=== PATIENT | male | born 1940 | race Caucasian/White ===

== ENCOUNTER 2017-09-24 08:40 | Inpatient (IN) | payer MEDICARE, BC ==
--- NOTE | 2017-09-23 15:00 | Pre-op HX & Phy Repo 2 SIG ---
DATE OF ADMISSION: 09/24/2017 Scheduled to be admitted on 09/24/2017. 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 The patient has a past history of ulcerative colitis and in 1973 underwent proctocolectomy with Farrah ileostomy. He underwent creation of a Kock pouch continent ileostomy in 1975 followed by revisions that year and in 1977. In 1977, he underwent resection of his Kock pouch with creation of another Kock pouch with a mesh collar. In 2012, he underwent laparotomy with revision of a Kock pouch valve stenosis as well as revision of the stoma. In April 2016 he underwent laparotomy with creation of a new valve and stoma with preservation of the Kock pouch and relocation of the stoma to the left lower quadrant. Following that surgery the patient did very well with occasional episodes of pouchitis treated with Cipro and Flagyl. In April 2017, one year postoperative, he developed an abscess in the midline incision near the umbilicus, which subsequently drained stool representing an enterocutaneous fistula. He has been wearing an ostomy appliance over this opening ever since then with minimal output, sometimes as little as 10 mL in 24 hours. He has tried an indwelling catheter in his pouch to drainage as well as intubating frequently to try and decrease the fistula drainage, but it has persisted and he had recurrent abdominal wall infection at the fistula site. He is scheduled to undergo laparotomy with either repair of the fistula with preservation of the Kock pouch or resection of his pouch with creation of a conventional Farrah ileostomy. PAST MEDICAL HISTORY: MEDICATIONS: Coumadin discontinued, recently changed to Lovenox, which he has been self-injecting 70 mg every 12 hours. Last injection to be 09/24/2017 in the morning. He also takes Proscar and Hytrin. ALLERGIES: Penicillin. OPERATIONS: In addition to the ulcerative colitis and pouch surgery, he underwent repair of three abdominal wall hernias as an infant. REVIEW OF SYSTEMS: In April 2012, he developed acute shortness of breath and was found to have pulmonary emboli of unknown source and has been anticoagulated with warfarin ever since. PHYSICAL EXAMINATION: GENERAL: The patient is 5 foot 8 inches, approximately 185 pounds. He is arriving [id number] and will be examined upon arrival and dictated separately. When examined in May 2017, the abdomen was soft and flat with the Kock pouch stoma low in the left lower quadrant with a mid-incision fistula with some hypertrophic granulations. IMPRESSION: 1. 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 2. History of ulcerative colitis. 3. History of pulmonary emboli in 2011 of unknown source, on warfarin. 4. Benign prostatic hypertrophy. 5. Status post multiple abdominal operations. 5.1. Proctocolectomy and Farrah ileostomy in 1973. 5.2. Kock pouch in 1975. 5.3. Revisions of Kock pouch in 1975 and 1977. 5.4. Resection of Kock pouch with creation of another Kock pouch with a mesh collar in 1977. 5.5. Laparotomy with revision of Kock pouch valve stenosis and revision of stoma 2012. 5.6. Laparotomy with creation of a new valve and stoma with preservation of the Kock pouch and relocation of the stoma to the left lower quadrant April 2016 DISCUSSION AND PLAN: The patient will be admitted and undergo a bowel prep with concomitant IV hydration with insertion of a dual lumen PICC line. He will undergo endoscopy of his Kock pouch on the day of admission and be prepared for surgery the following day. I have had a full discussion with the patient regarding the nature of the surgery, indications, alternatives, options, and risks. He understands the options include repair of the fistula with preservation of the pouch or resection of the pouch, which is his second Kock pouch, and creation of a permanent conventional Farrah ileostomy. I will have another complete discussion in person with the patient when he arrives [id number] Neil Reddy M.D. DR: JORDAN JOB#: [id number] CC: BO
[~2017-09-24] VITALS: Ht 165.1 cm; Wt 71.2 kg
[2017-09-24 08:00] VITALS: BP 127/74
[~2017-09-24 08:40] MED LIST: ASCORBIC ACID500 MG PO; COUMADIN6 MG PO; FISH OIL CAP1000 MG PO; FRAGMIN SUBQ; PROSCAR5 MG ORAL; TERAZOSIN HCL2 MG PO; TERAZOSIN HCL5 MG PO; UBIQUINOL100 MG PO; [UNRECOGNIZED DRUG - OTHER] SUBQ
[2017-09-24] MEDS ORDERED: TERAZOSIN HCL2 MG PO (09:19)
[2017-09-24] MEDS ORDERED: HEPARIN SO5000 UNIT2 SUBQ (09:19)
[2017-09-24] MEDS ORDERED: LEVOFLOXACIN500 MG ORAL (09:19)
[2017-09-24] MEDS ORDERED: TERAZOSIN HCL1 MG ORAL (09:19)
[2017-09-24] MEDS ORDERED: LOVENOX10 M2 SUBQ (09:19)
[2017-09-24] MEDS ORDERED: Heparin 5000 units/ml inj SUBQ ONE (09:30)
[2017-09-24] MEDS ORDERED: Heparin 2000 units/Ns 1000ml INJ ONE (09:45)
[2017-09-24] MEDS ORDERED: Lidocaine 1% Plain 30 ml INJ ONE (09:45)
[2017-09-24 10:08] LABS: BASOPHILS % (AUTO) 1.8 % (0.0-2.0); EOSINOPHILS % (AUTO) 1.8 % (0.0-3.0); HEMATOCRIT 46.2 % (42.0-52.0); HEMOGLOBIN 15.1 G/DL (14.2-18.0); MEAN CORPUSCULAR VOLUME 94 FL (80-99); MONOCYTES % (AUTO) 7.4 % (1.0-10.0); PLATELET COUNT 414 K/UL (150-450); RED BLOOD COUNT 4.92 M/UL (4.70-6.10); RED CELL DISTRIBUTION WIDTH 11.7 % (11.6-14.8); WHITE BLOOD COUNT 8.3 K/UL (4.8-10.8)
[2017-09-24 10:09] LABS: ANION GAP 12 mmol/L (5-15); BLOOD UREA NITROGEN 27 mg/dL (7-18); CALCIUM 9.5 MG/DL (8.5-10.1); CARBON DIOXIDE 23 MMOL/L (21-32); CHLORIDE 103 MMOL/L (98-107); CREATININE 1.3 MG/DL (0.55-1.30); POTASSIUM 4.3 MMOL/L (3.5-5.1); SODIUM 138 MMOL/L (136-145)
[2017-09-24 10:14] LABS: ALANINE AMINOTRANSFERASE 27 U/L (12-78); ALBUMIN 3.9 G/DL (3.4-5.0); ALKALINE PHOSPHATASE 96 U/L (46-116); ASPARTATE AMINO TRANSFERASE 29 U/L (15-37); BILIRUBIN,TOTAL 0.5 MG/DL (0.2-1.0)
--- NOTE | 2017-09-24 10:53 | Diagnostic Imaging Report ---
Indication: Cough Technique: One view of the chest Comparison: 05/02/2016 Findings: Previously demonstrated left arm PICC is no longer evident. Lungs and pleural spaces are clear. Old healed fracture deformity of the midshaft right clavicle again demonstrated Impression: No acute process
--- NOTE | 2017-09-24 11:05 | Diagnostic Imaging Report ---
Indications: Needs long-term IV access Technique: Ultrasound confirms patent compressible left brachial vein. Total sterile technique, including sterile probe cover and sterile gel, hat, mask,, sterile gown, large sterile drape, and preparation with 2% chlorhexidine utilized. Local anesthesia with 1% lidocaine. Under real-time ultrasound guidance, puncture brachial vein using 21-gauge needle, documented and archived, passage 0.018 guidewire under direct fluoroscopy, which was used to determine appropriate catheter length, exchange for 5 Irish peel-away sheath. 5 Irish Bard dual-lumen power PICC cut to 46 cm. It was inserted through the peel-away sheath. Peel-away sheath and guidewire removed. Catheter fixed to the skin. Both catheter ports aspirated and flushed. Patient tolerated procedure well, without immediate complication. Digital radiograph documents satisfactory catheter tip position, at the cavoatrial junction. Total fluoroscopy time 0.3 minutes. Total dose area product 6 dGycm2 Impression: Successful placement of left arm PICC under sonographic and fluoroscopic guidance, as described above.
--- NOTE | 2017-09-24 11:21 | Pre-Procedure Note/Attestation ---
Pre-Procedure Note/Attestation Complete Prior to Procedure Planned Procedure: not applicable Procedure Narrative: Kock Pouch endoscopy Indications for Procedure Pre-Operative Diagnosis: Kock Pouch enterocutaneous fistula Attestation I attest that I discussed the nature of the procedure; its benefits; risks and complications; and alternatives (and the risks and benefits of such alternatives ), prior to the procedure, with the patient (or the patient's legal assisted sales representative). I attest that, if there was a reasonable possibility of needing a blood transfusion, the patient (or the patient's legal assisted sales representative) was given the [facility] standardized written summary, pursuant to the Adrián Ramila Blood Safety Act ([place] Health and Safety Code # 1645, as amended). I attest that I re-evaluated the patient just prior to the surgery and that there has been no change in the patient's H&P, except as documented below:none BOOGIE ZHONG Sep 24, 2017 11:21
[2017-09-24 12:00] VITALS: BP 105/73
--- NOTE | 2017-09-24 12:15 | Brief Operative Note ---
Immediate Post Operative Note Operative Note Pre-op Diagnosis: Kock Pouch enterocutaneous fistula Procedure: Kock Pouch endoscopy Post-op Diagnosis: angulation of access segment, normal pouch and valve Post-op Diagnosis: same as pre-op Findings: consistent w/pre-op dx studies Surgeon: pushpa Anesthesia: other - none Specimen: none Complications: none Condition: stable Fluids: none Drains: other - 28 Thompson to Kock Pouch Implant(s) used?: BOOGIE Mccullough Sep 24, 2017 12:15
--- NOTE | 2017-09-24 12:16 | General Progress Note ---
Progress Note Progress Note H&P dictated. Kock pouch endoscopy reveals angulation of access segment, normal pouch and valve. Fistula in mid-portion of midline incision with scant drainage during endoscopy - hypertrophic granulations at site Plan: Repair of Kock pouch enterocutaneous fistula in AM, or resection of pouch with Farrah ileostomy BOOGIE ZHONG Sep 24, 2017 12:16
[2017-09-24 12:21] LABS: APPEARANCE,URINE SLIGHTLY CLOUDY; BILIRUBIN, URINE NEGATIVE (NEGATIVE); GLUCOSE, URINE (UA) NEGATIVE (NEGATIVE); KETONES,URINE 1+ (NEGATIVE); LEUKOCYTE ESTERASE ,URINE 1+ (NEGATIVE); NITRITE,URINE NEGATIVE (NEGATIVE); PH,URINE 5 (4.5-8.0); PROTEIN,URINE 1+ (NEGATIVE); UROBILINOGEN,URINE NORMAL MG/DL (0.0-1.0)
[2017-09-24] MEDS: Neomycin Sulfate 500mg Tab ORAL SCH ×3 (12:25→20:35)
[2017-09-24] MEDS: Terazosin 1mg cap ORAL SCH ×2 (12:25→17:33)
[2017-09-24 12:26] LABS: COLOR,URINE YELLOW
--- NOTE | 2017-09-24 15:58 | Anethesia Preoperative Eval ---
Anesthesia Pre-op PMH/ROS General Date of Evaluation: Sep 24, 2017 Time of Evaluation: 15:41 Anesthesiologist: Donny ASA Score: ASA 3 Mallampati Score Class I : Soft palate, uvula, fauces, pillars visible Class II: Soft palate, uvula, fauces visible Class III: Soft palate, base of uvula visible Class IV: Only hard plate visible Mallampati Classification: Class II Surgeon: Barry Diagnosis: Enterocutaneous fistula involving Kock pouch continent ileostomy Surgical Procedure: Repair of Kock pouch vs Permanent Farrah Ileostomy Family History: no anesthesia problems Allergies: Coded Allergies: PENICILLIN G (Verified Allergy, Mild, hives, 10/16/12) Medications: see eMAR Past Medical History Pulmonary: Reports: other - PE, On Coumadin Gastrointestinal/Genitourinary: Reports: other - Colitis, Diverticulitis,BPH HEENT: Reports: cataract (L), cataract (R) PSxH Narrative: 1. 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 2. History of ulcerative colitis. 3. History of pulmonary emboli in 2011 of unknown source, on warfarin. 4. Benign prostatic hypertrophy. 5. Status post multiple abdominal operations. 5.1. Proctocolectomy and Farrah ileostomy in 1973. 5.2. Kock pouch in 1975. 5.3. Revisions of Kock pouch in 1975 and 1977. 5.4. Resection of Kock pouch with creation of another Kock pouch with a mesh collar in 1977. 5.5. Laparotomy with revision of Kock pouch valve stenosis and revision of stoma 2012. 5.6. Laparotomy with creation of a new valve and stoma with preservation of the Kock pouch and relocation of the stoma to the left lower quadrant. Anesthesia Pre-op Phys. Exam Physician Exam Last Vital Signs Date Time Temp Pulse Resp B/P (MAP) Pulse Ox O2 Delivery O2 Flow Rate FiO2 09/24/17 12:00 97.4 79 18 105/73 99 Room Air Constitutional: NAD Neurologic: CN 2-12 intact Cardiovascular: RRR Respiratory: CTA Gastrointestinal: S/NT/ND Airway Exam Mallampati Score: Class II MO: full ROM: limited Teeth: missing, intact Anesthesia Pre-op A/P Labs Hematology Test 09/24/17 09:40 White Blood Count 8.3 K/UL (4.8-10.8) Red Blood Count 4.92 M/UL (4.70-6.10) Hemoglobin 15.1 G/DL (14.2-18.0) Hematocrit 46.2 % (42.0-52.0) Mean Corpuscular Volume 94 FL (80-99) Mean Corpuscular Hemoglobin 30.7 PG (27.0-31.0) Mean Corpuscular Hemoglobin Concent 32.7 G/DL (32.0-36.0) Red Cell Distribution Width 11.7 % (11.6-14.8) Platelet Count 414 K/UL (150-450) Mean Platelet Volume 6.0 FL (6.5-10.1) L Neutrophils (%) (Auto) 69.0 % (45.0-75.0) Lymphocytes (%) (Auto) 20.0 % (20.0-45.0) Monocytes (%) (Auto) 7.4 % (1.0-10.0) Eosinophils (%) (Auto) 1.8 % (0.0-3.0) Basophils (%) (Auto) 1.8 % (0.0-2.0) Coagulation Test 09/24/17 09:40 Prothrombin Time 10.3 SEC (9.30-11.50) Prothromb Time International Ratio 1.0 (0.9-1.1) Activated Partial Thromboplast Time 28 SEC (23-33) Chemistry Test 09/24/17 09:40 Sodium Level 138 MMOL/L (136-145) Potassium Level 4.3 MMOL/L (3.5-5.1) Chloride Level 103 MMOL/L (98-107) Carbon Dioxide Level 23 MMOL/L (21-32) Anion Gap 12 mmol/L (5-15) Blood Urea Nitrogen 27 mg/dL (7-18) H Creatinine 1.3 MG/DL (0.55-1.30) Estimat Glomerular Filtration Rate mL/min (>60) Glucose Level 93 MG/DL (74-106) Calcium Level 9.5 MG/DL (8.5-10.1) Total Bilirubin 0.5 MG/DL (0.2-1.0) Aspartate Amino Transf (AST/SGOT) 29 U/L (15-37) Alanine Aminotransferase (ALT/SGPT) 27 U/L (12-78) Alkaline Phosphatase 96 U/L (46-116) Total Protein 8.0 G/DL (6.4-8.2) Albumin 3.9 G/DL (3.4-5.0) Globulin 4.1 g/dL Albumin/Globulin Ratio 1.0 (1.0-2.7) Risk Assessment & Plan Assessment: ASA 3 Plan: GA Status Change Before Surgery: No Pre-Antibiotics Drug: Isaias Martin MD Sep 24, 2017 15:58
[2017-09-24 16:00] VITALS: BP 118/69
[2017-09-24] MEDS: D5 1/2NS w/KCl 20mEq 1,000 ML IV SCH (17:33)
[2017-09-24] MEDS: Heparin 5000 units/ml inj SUBQ SCH (18:50)
[2017-09-24 20:00] VITALS: BP 96/55
[2017-09-25] VITALS (14 sets, daily range): BP systolic 87–120; BP diastolic 54–69
[2017-09-25] MEDS: D5 1/2NS w/KCl 20mEq 1,000 ML IV SCH (06:00)
[2017-09-25] MEDS: Heparin 5000 units/ml inj SUBQ SCH (07:55)
[2017-09-25] MEDS: Terazosin 1mg cap ORAL SCH ×2 (08:31→18:10)
[2017-09-25] MEDS ORDERED: NeoSporin Gu Irrig 1ml Amp IRRIG ONE (09:39)
[2017-09-25] MEDS ORDERED: Bacitracin 50000 Units Vial ONE (09:39)
[2017-09-25] MEDS ORDERED: NS Irrig 1000ml ONE (10:00)
[2017-09-25] MEDS ORDERED: Zemuron 50mg/5ml Inj IV ONE (10:00)
[2017-09-25] MEDS ORDERED: Lidocaine 1% MPF 10mg/ml 5ml ONE (10:00)
[2017-09-25] MEDS ORDERED: Propofol 200mg/20ml IV ONE (10:00)
[2017-09-25] MEDS ORDERED: Midazolam 2mg/2ml Inj ONE ×2 (10:00)
[2017-09-25] MEDS ORDERED: fentaNYL 100 mcg/2 mL IV ONE (10:00)
[2017-09-25] MEDS ORDERED: LR 1000ml ONE (10:00)
[2017-09-25] MEDS ORDERED: Sterile Water Irrig 1000ml IRRIG ONE (10:00)
--- NOTE | 2017-09-25 10:01 | Pre-Procedure Note/Attestation ---
Pre-Procedure Note/Attestation Complete Prior to Procedure Procedure Narrative: laparotomy with repair Kock Pouch enterocutaneous fistula, possible Farrah ileostomy Indications for Procedure Pre-Operative Diagnosis: Kock Pouch enterocutaneous fistula Attestation I attest that I discussed the nature of the procedure; its benefits; risks and complications; and alternatives (and the risks and benefits of such alternatives ), prior to the procedure, with the patient (or the patient's legal claims representative). I attest that, if there was a reasonable possibility of needing a blood transfusion, the patient (or the patient's legal claims representative) was given the [facility] standardized written summary, pursuant to the Adrián Ramila Blood Safety Act ([place] Health and Safety Code # 1645, as amended). I attest that I re-evaluated the patient just prior to the surgery and that there has been no change in the patient's H&P, except as documented below: none BOOGIE ZHONG Sep 25, 2017 10:01
[2017-09-25] MEDS ORDERED: LR 1000ml 1,000 ML IVLG SCH (10:13)
--- NOTE | 2017-09-25 10:13 | Immediate Post-Op Evaluation ---
Immediate Post-Op Evalulation Immediate Post-Op Evalulation Procedure: Revision quiñones pouch Date of Evaluation: Sep 25, 2017 Time of Evaluation: 13:34 IV Fluids: 2.6L Blood Products: 0 Estimated Blood Loss: 100 Urinary Output: 300 Blood Pressure Systolic: 117 Blood Pressure Diastolic: 59 Pulse Rate: 102 Respiratory Rate: 17 O2 Sat by Pulse Oximetry: 98 Temperature (Fahrenheit): 98.6 Pain Score (1-10): 0 Nausea: No Vomiting: No Complications 0 Patient Status: awake, reacts, patent, none Hydration Status: adequate Drug: Levaquin and flagyl at 0800 and 0600 respectively Given Within 1 Hr of Incision: Yes MCKAY JONES M.D. Sep 25, 2017 10:12
[2017-09-25] MEDS ORDERED: DiphenhydrAMINE 50mg/ml Inj IVP PRN ×2 (10:15→14:00)
[2017-09-25] MEDS ORDERED: Midazolam 2mg/2ml Inj IVP PRN (10:15)
[2017-09-25] MEDS ORDERED: fentaNYL 100 mcg/2 mL IV PRN (10:15)
[2017-09-25] MEDS ORDERED: Hydromorphone 0.5mg/0.5ml inj IVP PRN (10:15)
--- NOTE | 2017-09-25 13:25 | Brief Operative Note ---
Immediate Post Operative Note Operative Note Pre-op Diagnosis: Kock Pouch enterocutaneous fistula Procedure: Resection of enterocutaneous fistula of small bowel x 2; revision of Kock Pouch stoma in depth Post-op Diagnosis: Enterocutaneous fistula x 2 involving small bowel proximal to Kock Pouch; redundant access segment Post-op Diagnosis: same as pre-op Findings: consistent w/pre-op dx studies Surgeon: pushpa Graphic Illustrator: mica Anesthesiologist: jake Anesthesia: general Specimen: yes - fistula x 2; Kock pouch stoma Complications: none Condition: stable Fluids: see anesthesia record Estimated Blood Loss: volume - 100ml Drains: none Implant(s) used?: No BOOGIE ZHONG Sep 25, 2017 13:24
[2017-09-25] MEDS ORDERED: PCA HYDROmorphone 1mg/ml 30 ML IV PRN (14:00)
[2017-09-25] MEDS ORDERED: Rate Change PCA 1 Each MISC PRN (14:00)
[2017-09-25] MEDS ORDERED: Naloxone 0.4mg/ml Inj IVP PRN (14:00)
--- NOTE | 2017-09-25 15:45 | Operative Note - Dictated ---
DATE OF OPERATION: 09/25/2017 SURGEON: Neil Reddy M.D. J2EE ANDROID DEVELOPER: Ang Power M.D. ANESTHESIOLOGIST: Dr. Mckeon. TYPE OF ANESTHESIA: General endotracheal. PREOPERATIVE DIAGNOSES: 1. Enterocutaneous fistula. 2. History of ulcerative colitis. 3. Status post multiple abdominal operations. 3.1. Proctocolectomy and Farrah ileostomy in 1973. 3.2. Kock pouch in 1975. 3.3. Revisions of Kock pouch in 1975 and 1977. 3.4. Resection of Kock pouch with creation of another Kock pouch in 1977 3.5. Laparotomy with revision of Kock pouch valve stenosis and revision of stoma in 2012. 3.6. Laparotomy with creation of a new valve and stoma with preservation of the Kock pouch and relocation of the stoma to the left lower quadrant April 2016 POSTOPERATIVE DIAGNOSES: 1. Enterocutaneous fistula involving staple line of small bowel at anastomosis to Kock pouch and prior enteroenterostomy 2. History of ulcerative colitis. 3. Status post multiple abdominal operations. 3.1. Proctocolectomy and Farrah ileostomy in 1973. 3.2. Kock pouch in 1975. 3.3. Revisions of Kock pouch in 1975 and 1977. 3.4. Resection of Kock pouch with creation of another Kock pouch in 1977 3.5. Laparotomy with revision of Kock pouch valve stenosis and revision of stoma in 2012. 3.6. Laparotomy with creation of a new valve and stoma with preservation of the Kock pouch and relocation of the stoma to the left lower quadrant April 2016 OPERATION PERFORMED: Laparotomy with small-bowel resection x2 and revision of Kock pouch stoma in depth. FINDINGS: The Kock pouch itself was completely intact. At the previous operation, the patient had a [id number] anastomosis of the small bowel to the Kock pouch with a short blind end which had been stapled off. The fistula originated from this and involved an adjacent loop of small bowel at the site of a prior enteroenterostomy. The proximal fistula was dealt with segmental small bowel resection and the more distal fistula with resection of the blind end staple line. DESCRIPTION OF PROCEDURE: The patient was taken to the operating room and under general anesthesia with sequential compression device stockings and Thompson catheter in place, he was prepped and draped in the usual fashion. Previous midline incision was reopened using an elliptical incision around the fistula site with its hypertrophic granulations at the mid incision just inferior to the umbilicus. The abdominal cavity was entered and there were diffuse adhesions which were mobilized. The pouch was mobilized out of the pelvis where it was fairly adherent. In order to complete the mobilization, the stoma with redundant access segment was dismantled in the left lower quadrant and the stoma brought into the abdominal cavity. The site of the fistulae were quite clear and did not involve the pouch. Following the dissection the most proximal fistula was resected using the HARRY-55 stapling device dividing the bowel just proximal and distal and doing a [id number] functional end-to-end HARRY stapled anastomosis with the enterotomy closed with the TA-60 green cartridge. The mesenteric defect was closed with interrupted 3-0 silk. Then the primary fistula at the blind end of the small bowel that was attached to the pouch was approached. The blind end was mobilized and the fistula grasped right at the staple line. The TA-60 green cartridge was fired proximal to it and the fistula excised. Both specimens were given to pathology. Then the afferent bowel was manually occluded and with the 28-Singaporean Thompson catheter placed through the stoma into the pouch, the pouch was distended with 800 mL of saline. There was no extravasation and when the catheter was removed, there was no incontinence. The catheter was reintroduced and compression maintained further proximally with additional instillation of saline showing that the anastomosis was intact. The pouch was decompressed. The field was irrigated and the incision had been protected with antibiotic-soaked laps and Betadine-soaked sponge in the stoma site. Now the posterior pouch was sutured to the musculoperitoneum at the stoma site with two interrupted 3-0 Vicryl sutures and then the stoma with its access segment and mesentery brought back through the same stoma site in the left lower quadrant. A 28-Singaporean Thompson catheter was placed into the pouch. Then the redundancy of the access segment was placed on stretch and a part of the mesentery divided to the redundancy ligating with 3-0 Vicryl. Then the redundancy was excised and the stoma primarily matured utilizing 2-0 chromic continuous full-thickness locking suture starting at the 3 and 9 o'clock positions. A very satisfactory stoma was achieved. The 28-Singaporean Thompson catheter was positioned in the apex of the pouch and marked at the level of the stoma with 3-0 silk and sutured to the skin with two sutures of 2-0 silk. The catheter was flushed and connected to a gravity drainage bag. The field was again inspected and hemostasis was secure. The upper abdomen was completely sealed with adhesions and could not be assessed and I did not feel creating a catheter gastrostomy was warranted. The midline incision was closed in one layer with continuous #1 Prolene starting at both ends and inverting the knots. Subcutaneous tissues again irrigated with antibiotic solution and skin closed with george. Dry sterile dressings were applied. Final sponge and needle counts were correct. Estimated blood loss 100 mL. The patient tolerated the procedure well and left the operating room in good condition. Neil Reddy M.D. DR: Faraz JOB#: [id number] CC: BO
[2017-09-25] MEDS ORDERED: PCA Education Pamphlet MISC ONE (16:00)
--- NOTE | 2017-09-25 17:00 | Pre-op HX & Phy Repo 2 SIG ---
DATE OF ADMISSION: 09/24/2017 HISTORY OF PRESENT ILLNESS: [place] Please see previously dictated history. PHYSICAL EXAMINATION: GENERAL: He is well developed and well nourished, in no distress with stable vital signs. HEENT: Within normal limits. LUNGS: Clear. HEART: Regular rhythm. BREASTS: Without masses. ABDOMEN: Soft. There is a long midline incision and at the midportion are some hypertrophic granulations at the site of his enterocutaneous fistula. There is scant output from the fistula. The stoma of the Kock pouch continent ileostomy is low in the left lower quadrant. There is no evidence of abdominal wall hernia. GENITALIA: Within normal limits. RECTAL: Status post proctectomy. EXTREMITIES: Without edema. Pulses 2+ femoral to pedal bilateral NEUROLOGIC: Physiologic. IMPRESSION: 1. Enterocutaneous fistula likely involving Kock Pouch continent ileostomy. 2. History of ulcerative colitis. 3. History of pulmonary emboli in 2011 of unknown source, on warfarin 4. Benign prostatic hypertrophy. 5. Status post multiple abdominal operations. 5.1. Proctocolectomy and Farrah ileostomy in 1973. 5.2. Kock pouch in 1975. 5.3. Revisions of Kock pouch in 1975 and 1977. 5.4. Resection of Kock pouch with creation of another Kock pouch with a mesh collar in 1977. 5.5. Laparotomy with revision of Kock pouch valve stenosis and revision of stoma in 2012. 5.6. Laparotomy with creation of a new valve and stoma with preservation of the Kock pouch and relocation of the stoma to the left lower quadrant April 2016 PLAN: The patient will undergo pouch endoscopy and be prepared for surgery tomorrow. A dual lumen PICC line will be inserted and he will receive intravenous hydration and bowel prep. A catheter will be placed into his Kock pouch to continuous drainage. I have had a full discussion with the patient regarding the nature of the surgery including options and risks. He understands the primary option is to repair the fistula with preservation of the Kock pouch whereas it may be impossible to safely repair in which case the pouch would be resected and he will have creation of a permanent conventional Farrah ileostomy. I have discussed the general risks of surgery including bleeding, infection, injury to adjacent structures or organs, scarring, potential bowel obstruction, etc. I have discussed the specific risks of Kock pouch surgery including recurrent difficulties with fistula, the valve, stoma, or pouch that could need additional procedures. All questions have been answered. He understands and agrees to proceed. Neil Reddy M.D. DR: PHILIPP JOB#: [id number] CC: BO
[2017-09-25] MEDS: D5 1/4NS w/KCl 20mEq 1,000 ML IV SCH (17:04)
[2017-09-25] MEDS: PCA shift volume MISC SCH (19:00)
--- NOTE | 2017-09-25 19:03 | Cardiology Report ---
APPROVED REPORT EKG Measurement Heart [id number] [place] [id number] Normal sinus rhythm Normal ECG
[2017-09-25] MEDS ORDERED: LORazepam 1mg tab SL PRN (21:00)
[2017-09-25] MEDS: Dyna-Hex 2% Top Sol 2oz TOPIC SCH (21:05)
--- NOTE | 2017-09-25 22:45 | Procedure Note ---
DATE OF PROCEDURE: 09/24/2017 PROCEDURE: Endoscopy. ENDOSCOPIST: Neil Reddy M.D. ANESTHESIA: None. SEDATION: None. PRE-ENDOSCOPY DIAGNOSES: 1. 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 2. History of ulcerative colitis. 3. Status post multiple abdominal operations including proctocolectomy and Farrah ileostomy followed by Kock pouch with multiple revisions, most recently in April 2016. POST-ENDOSCOPY DIAGNOSES: 1. 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 2. History of ulcerative colitis. 3. Status post multiple abdominal operations including proctocolectomy and Farrah ileostomy followed by Kock pouch with multiple revisions, most recently in April 2016. ENDOSCOPY PERFORMED: Kock pouch endoscopy. FINDINGS: Angulation of the access segment with a normal pouch and well-formed nipple valve. There was almost no output from the fistula during the endoscopy. DESCRIPTION OF PROCEDURE: The patient was positioned supine in the GI lab without any anesthesia or sedation given or required. Using a GIF-P140 endoscope, the stoma in the left lower quadrant was entered and there was redundancy with angulation of the access segment. The distance to the tip of the valve was 10 to 11 cm. The pouch was entered and very distensible. The mucosa appeared completely normal. Retroflexed views revealed a circumferentially well-formed nipple valve. During the endoscopy, there were few air bubbles coming from the fistula, but nothing else. Following the endoscopy, I was able to readily insert a 28-Montserratian Thompson catheter into the pouch and connected it to a continuous gravity drainage bag. The patient tolerated the endoscopy well and will be prepared for surgery in the morning. Neil Reddy M.D. DR: PHILIPP JOB#: [id number] CC: BO
[2017-09-26] VITALS: BP 117/57
[2017-09-26] MEDS: D5 1/4NS w/KCl 20mEq 1,000 ML IV SCH ×3 (03:58→23:00)
[2017-09-26 04:00] VITALS: BP 151/85
[2017-09-26 04:25] LABS: HEMATOCRIT 36.2 % (42.0-52.0); HEMOGLOBIN 12.3 G/DL (14.2-18.0); MEAN CORPUSCULAR VOLUME 94 FL (80-99); PLATELET COUNT 329 K/UL (150-450); RED BLOOD COUNT 3.86 M/UL (4.70-6.10); RED CELL DISTRIBUTION WIDTH 11.5 % (11.6-14.8); WHITE BLOOD COUNT 19.9 K/UL (4.8-10.8)
[2017-09-26 04:47] LABS: ALANINE AMINOTRANSFERASE 25 U/L (12-78); ALBUMIN 2.7 G/DL (3.4-5.0); ALBUMIN/GLOBULIN RATIO 0.9 (1.0-2.7); ALKALINE PHOSPHATASE 61 U/L (46-116); ANION GAP 4 mmol/L (5-15); ASPARTATE AMINO TRANSFERASE 23 U/L (15-37); BILIRUBIN,TOTAL 0.5 MG/DL (0.2-1.0); BLOOD UREA NITROGEN 16 mg/dL (7-18); CALCIUM 8.4 MG/DL (8.5-10.1); CARBON DIOXIDE 27 MMOL/L (21-32); CHLORIDE 105 MMOL/L (98-107); CREATININE 1.2 MG/DL (0.55-1.30); POTASSIUM 4.2 MMOL/L (3.5-5.1); SODIUM 136 MMOL/L (136-145)
[2017-09-26] MEDS: Heparin 5000 units/ml inj SUBQ SCH ×3 (06:35→21:09)
[2017-09-26] MEDS: PCA shift volume MISC SCH ×2 (07:30→19:06)
[2017-09-26 08:00] VITALS: BP 103/57
--- NOTE | 2017-09-26 08:23 | General Progress Note ---
Progress Note Progress Note T 102 overnight now normal. Comfortable with Dilaudid DAT INSTRUCTOR. Very good incentive spirometer effort Lungs clear, Cor reg rhythm Abdomen soft, mildly distended, incision clean, stoma pink Urine 1000cc / 12 hrs Kock pouch ileo 140 WBC 19,900 Hbg 12.3 BUN 16 (was 27 pre-op) CR 1.2 Albumin 2.7 Imp: Ileus Fever Malnutrition with low albumin Clinical Peritonitis from the intestine being open for prolonged time during surgery Plan: TPN - will be npo for 6-7 days Continue IV antibiotics Continue Thompson (pelvic dissection) Ambulate with assistance f/u labs BOOGIE ZHONG Sep 26, 2017 08:23
[2017-09-26] MEDS ORDERED: PCA HYDROmorphone 1mg/ml 30 ML IV PRN (09:00)
[2017-09-26] MEDS: Terazosin 1mg cap ORAL SCH ×2 (09:06→17:32)
[2017-09-26 12:00] VITALS: BP 101/51
[2017-09-26 16:00] VITALS: BP 100/50
[2017-09-26] MEDS: NovoLOG Insulin Flexpen SUBQ SCH ×2 (18:00→23:57)
[2017-09-26 20:00] VITALS: BP 102/55
[2017-09-26] MEDS ORDERED: Dextrose 10% 1,000 ML IV PRN (20:00)
[2017-09-26] MEDS: Fat Emulsion Iv 20% 240 ML in Tpn 1,680 ML IV SCH (20:20)
[2017-09-26] MEDS ORDERED: Fat Emulsion Iv 20% 250 ML IV SCH (21:00)
[2017-09-26] MEDS: Dyna-Hex 2% Top Sol 2oz TOPIC SCH (21:05)
[2017-09-27] VITALS: BP 101/50
[2017-09-27 04:00] VITALS: BP 112/95
[2017-09-27] MEDS: NovoLOG Insulin Flexpen SUBQ SCH ×3 (06:06→17:59)
[2017-09-27] MEDS: PCA shift volume MISC SCH ×2 (07:26→19:00)
[2017-09-27 07:34] LABS: BASOPHILS % (AUTO) 0.5 % (0.0-2.0); EOSINOPHILS % (AUTO) 1.1 % (0.0-3.0); HEMATOCRIT 34.6 % (42.0-52.0); HEMOGLOBIN 11.7 G/DL (14.2-18.0); LYMPHOCYTES % (AUTO) 14.9 % (20.0-45.0); MEAN CORPUSCULAR VOLUME 94 FL (80-99); MONOCYTES % (AUTO) 9.9 % (1.0-10.0); NEUTROPHILS % (AUTO) 73.6 % (45.0-75.0); PLATELET COUNT 306 K/UL (150-450); RED BLOOD COUNT 3.68 M/UL (4.70-6.10); RED CELL DISTRIBUTION WIDTH 11.4 % (11.6-14.8); WHITE BLOOD COUNT 13.5 K/UL (4.8-10.8)
[2017-09-27 07:48] LABS: ANION GAP 5 mmol/L (5-15); BLOOD UREA NITROGEN 13 mg/dL (7-18); CALCIUM 8.4 MG/DL (8.5-10.1); CARBON DIOXIDE 31 MMOL/L (21-32); CHLORIDE 105 MMOL/L (98-107); POTASSIUM 3.6 MMOL/L (3.5-5.1); SODIUM 141 MMOL/L (136-145)
[2017-09-27] MEDS: Terazosin 1mg cap ORAL SCH ×2 (08:31→17:54)
[2017-09-27] MEDS: Heparin 5000 units/ml inj SUBQ SCH ×2 (08:46→21:46)
--- NOTE | 2017-09-27 08:57 | 48 Hour Post Anesthesia Eval ---
Post Anesthesia Evaluation Procedure: Revision quiñones pouch Date of Evaluation: Sep 27, 2017 Time of Evaluation: 06:23 Blood Pressure Systolic: 112 0: 95 Pulse Rate: 83 Respiratory Rate: 19 Temperature (Fahrenheit): 100.3 O2 Sat by Pulse Oximetry: 93 Airway: patent Nausea: No Vomiting: No Pain Intensity: 2 Hydration Status: adequate Cardiopulmonary Status: Stable Mental Status/LOC: patient returned to baseline Follow-up Care/Observations: 0 Post-Anesthesia Complications: 0 Follow-up care needed: N/A Isaias Hines MD Sep 27, 2017 08:57
[2017-09-27 09:18] VITALS: BP 102/54
[2017-09-27] MEDS ORDERED: Rate Change PCA 1 Each MISC PRN (10:30)
[2017-09-27] MEDS ORDERED: Naloxone 0.4mg/ml Inj IVP PRN (10:30)
--- NOTE | 2017-09-27 10:47 | General Progress Note ---
Progress Note Progress Note Tmax 100.3 VSS Still requiring O2 saray at night Sao2 91% on RA. c/o dry mouth - tongue mildly coated white. Ambulated x 2 [address] Abdomen mildly distended, soft, incision clean, stoma pink Urine 1750 Kock pouch ileo 50 (enteric) WBC down 13,500 Hgb 11.7 BUN 13 Cr 1.0 (was 27 and 1.3 on admission) Imp. Ileus Peritonitis from prolonged open bowel during surgery Early oral thrush Malnutrition Plan: Continue npo and TPN with IV fluids 25cc/hr Nystatin oral susp. S&S QID continue Thompson - pelvic dissection Start Coumadin - continue SQ heparin until INR is therapeutic BOOGIE ZHONG Sep 27, 2017 10:47
[2017-09-27] MEDS: Nystatin Susp 500,000 units/5ml ORAL SCH ×3 (11:16→21:44)
[2017-09-27 12:00] VITALS: BP 109/54
[2017-09-27] MEDS ORDERED: DiphenhydrAMINE 50mg/ml Inj IVP PRN (14:00)
[2017-09-27 16:00] VITALS: BP 115/62
[2017-09-27] MEDS ORDERED: D5 1/4NS w/KCl 20mEq 1,000 ML IV SCH (17:00)
[2017-09-27] MEDS ORDERED: Tubing IV Secondary IV ONE ×2 (17:42→17:43)
[2017-09-27] MEDS ORDERED: NS Irrig 1000ml ONE (17:43)
[2017-09-27] MEDS: Warfarin Sodium 7.5mg ORAL SCH (17:54)
[2017-09-27] MEDS ORDERED: PCA HYDROmorphone 1mg/ml 30 ML IV PRN (19:29)
[2017-09-27 20:00] VITALS: BP 112/65
[2017-09-27] MEDS: Dyna-Hex 2% Top Sol 2oz TOPIC SCH (21:44)
[2017-09-27] MEDS: Fat Emulsion Iv 20% 240 ML in Tpn 1,680 ML IV SCH (21:48)
[2017-09-28] MEDS: NovoLOG Insulin Flexpen SUBQ SCH ×4 (00:20→17:35)
[2017-09-28 04:00] VITALS: BP 122/64
[2017-09-28] MEDS: PCA shift volume MISC SCH ×2 (07:00→19:00)
[2017-09-28 07:51] LABS: INR 1.1 (0.9-1.1)
[2017-09-28 07:52] LABS: BASOPHILS % (AUTO) 1.1 % (0.0-2.0); HEMATOCRIT 33.2 % (42.0-52.0); HEMOGLOBIN 11.5 G/DL (14.2-18.0); LYMPHOCYTES % (AUTO) 17.2 % (20.0-45.0); MEAN CORPUSCULAR VOLUME 94 FL (80-99); MONOCYTES % (AUTO) 8.7 % (1.0-10.0); NEUTROPHILS % (AUTO) 68.9 % (45.0-75.0); PLATELET COUNT 283 K/UL (150-450); RED BLOOD COUNT 3.53 M/UL (4.70-6.10); RED CELL DISTRIBUTION WIDTH 11.8 % (11.6-14.8)
[2017-09-28 08:00] VITALS: BP 99/52
[2017-09-28 08:13] LABS: ANION GAP 4 mmol/L (5-15); BLOOD UREA NITROGEN 13 mg/dL (7-18); CALCIUM 8.4 MG/DL (8.5-10.1); CARBON DIOXIDE 32 MMOL/L (21-32); CHLORIDE 103 MMOL/L (98-107); CREATININE 0.9 MG/DL (0.55-1.30); POTASSIUM 3.4 MMOL/L (3.5-5.1); SODIUM 139 MMOL/L (136-145)
[2017-09-28] MEDS: Nystatin Susp 500,000 units/5ml ORAL SCH ×4 (08:38→20:38)
[2017-09-28] MEDS: Terazosin 1mg cap ORAL SCH ×2 (08:39→17:26)
[2017-09-28] MEDS: Heparin 5000 units/ml inj SUBQ SCH ×2 (09:00→20:40)
[2017-09-28] MEDS ORDERED: Rate Change PCA 1 Each MISC PRN (09:45)
--- NOTE | 2017-09-28 09:48 | General Progress Note ---
Progress Note Progress Note Afebrilek x 24+ hrs; VSS. Has been ambulating in the hallways. Good IS effort - lungs clear Abdomen distended, soft, mild periincisional erythema mid-incision. Stoma pink Urine 1900 Kock pouch ileo 210 WBC down 12,000 Hgb 11.5 INR 1.1 K 3.4 Imp. Ileus slowly resolving peritonitis from open bowel during surgery Plan: Continue NPO, TPN, Thompson, SHELLFISH BED WORKER, IV antibiotics, coumadin 7.5mg po qpm Increase KCL in IV fluids BOOGIE ZHONG Sep 28, 2017 09:48
[2017-09-28] MEDS ORDERED: DiphenhydrAMINE 50mg/ml Inj IVP PRN (10:00)
[2017-09-28] MEDS ORDERED: PCA HYDROmorphone 1mg/ml 30 ML IV PRN (10:00)
[2017-09-28] MEDS ORDERED: Naloxone 0.4mg/ml Inj IVP PRN (10:00)
[2017-09-28] MEDS: D5 1/2NS w/KCl 40meq 1000ml 1,000 ML IV SCH (11:27)
[2017-09-28 12:00] VITALS: BP 110/57
[2017-09-28 16:00] VITALS: BP 116/61
[2017-09-28] MEDS: Warfarin Sodium 7.5mg ORAL SCH (17:26)
[2017-09-28 20:23] VITALS: BP 104/57
[2017-09-28] MEDS: Dyna-Hex 2% Top Sol 2oz TOPIC SCH (20:39)
[2017-09-28] MEDS: Fat Emulsion Iv 20% 240 ML in Tpn 1,680 ML IV SCH (20:44)
[2017-09-29 00:26] VITALS: BP 101/55
[2017-09-29] MEDS: NovoLOG Insulin Flexpen SUBQ SCH ×4 (00:44→18:12)
[2017-09-29 04:32] VITALS: BP 94/52
[2017-09-29] MEDS: PCA shift volume MISC SCH ×2 (07:00→19:00)
[2017-09-29 08:00] VITALS: BP 110/54
[2017-09-29 08:20] LABS: EOSINOPHILS % (AUTO) 7.2 % (0.0-3.0); HEMOGLOBIN 11.4 G/DL (14.2-18.0); LYMPHOCYTES % (AUTO) 14.7 % (20.0-45.0); MEAN CORPUSCULAR VOLUME 94 FL (80-99); MONOCYTES % (AUTO) 12.9 % (1.0-10.0); NEUTROPHILS % (AUTO) 64.2 % (45.0-75.0); PLATELET COUNT 325 K/UL (150-450); RED CELL DISTRIBUTION WIDTH 11.4 % (11.6-14.8); WHITE BLOOD COUNT 10.6 K/UL (4.8-10.8)
[2017-09-29 08:25] LABS: INR 1.1 (0.9-1.1)
[2017-09-29 08:34] LABS: ALANINE AMINOTRANSFERASE 15 U/L (12-78); ALBUMIN 2.2 G/DL (3.4-5.0); ALBUMIN/GLOBULIN RATIO 0.7 (1.0-2.7); ALKALINE PHOSPHATASE 47 U/L (46-116); ANION GAP 2 mmol/L (5-15); ASPARTATE AMINO TRANSFERASE 17 U/L (15-37); BILIRUBIN,TOTAL 0.3 MG/DL (0.2-1.0); BLOOD UREA NITROGEN 12 mg/dL (7-18); CALCIUM 8.2 MG/DL (8.5-10.1); CARBON DIOXIDE 34 MMOL/L (21-32); CHLORIDE 101 MMOL/L (98-107); POTASSIUM 3.5 MMOL/L (3.5-5.1); SODIUM 137 MMOL/L (136-145)
[2017-09-29] MEDS: Terazosin 1mg cap ORAL SCH ×2 (09:00→18:04)
[2017-09-29] MEDS: Nystatin Susp 500,000 units/5ml ORAL SCH ×4 (09:00→20:21)
--- NOTE | 2017-09-29 09:24 | General Progress Note ---
Progress Note Progress Note AVSS Using CORE CLEANER less frequently. Abdomen less distended, erythema markedly improved, healing nicely Urine 1450 Kock pouch ileo 140 WBC now wnl 10,600 Hgb stable 11.4 K 3.5 Albumin lower 2.2 INR 1.1 Imp. Ileus Malnutrition Resolving peritonitis Plan: continue npo and TPN; continue IV antibiotics d/c urinary Thompson catheter dietary consult re TPN formulation in view of decreasing albumin continue coumadin 7.5 mg daily with INR daily BOOGIE ZHONG Sep 29, 2017 09:24
[2017-09-29] MEDS: Heparin 5000 units/ml inj SUBQ SCH ×2 (09:27→20:24)
[2017-09-29] MEDS ORDERED: Naloxone 0.4mg/ml Inj IVP PRN (10:00)
[2017-09-29] MEDS ORDERED: DiphenhydrAMINE 50mg/ml Inj IVP PRN (10:00)
[2017-09-29] MEDS ORDERED: PCA HYDROmorphone 1mg/ml 30 ML IV PRN (10:00)
[2017-09-29] MEDS ORDERED: Rate Change PCA 1 Each MISC PRN (10:00)
[2017-09-29] MEDS: D5 1/2NS w/KCl 40meq 1000ml 1,000 ML IV SCH (11:59)
[2017-09-29] MEDS: LORazepam 1mg tab SL PRN ×2 (12:04→20:21)
[2017-09-29 12:39] VITALS: BP 114/65
[2017-09-29 16:30] VITALS: BP 114/60
[2017-09-29] MEDS: Warfarin Sodium 7.5mg ORAL SCH (17:59)
[2017-09-29 20:00] VITALS: BP 109/61
[2017-09-29] MEDS: Dyna-Hex 2% Top Sol 2oz TOPIC SCH (20:21)
[2017-09-29] MEDS: Fat Emulsion Iv 20% 240 ML in Tpn 1,680 ML IV SCH (20:23)
[2017-09-30] VITALS: BP 117/63
[2017-09-30] MEDS: NovoLOG Insulin Flexpen SUBQ SCH ×4 (00:20→17:58)
[2017-09-30 04:00] VITALS: BP 107/56
[2017-09-30 05:01] LABS: INR 1.2 (0.9-1.1)
[2017-09-30] MEDS: PCA shift volume MISC SCH ×2 (07:27→19:00)
[2017-09-30 08:00] VITALS: BP 126/67
[2017-09-30] MEDS: Terazosin 1mg cap ORAL SCH ×2 (08:11→17:56)
[2017-09-30] MEDS: Nystatin Susp 500,000 units/5ml ORAL SCH ×4 (08:11→20:56)
[2017-09-30] MEDS: Heparin 5000 units/ml inj SUBQ SCH ×2 (08:23→21:05)
--- NOTE | 2017-09-30 08:24 | General Progress Note ---
Progress Note Progress Note AVSS Voiding well since english removed. tongue coated Abdomen still mildly distended, healing nicely Urine 1685 Kock pouch ileo 195 INR 1.2 Imp. Slowly resolving ileus Plan: continue npo, TPN d/c Flagyl - continue Levaquin diflucan 150mg po x 1 coumadin 7.5mg daily f/u labs BOOGIE ZHONG Sep 30, 2017 08:24
[2017-09-30] MEDS ORDERED: Fluconazole 100mg tab ORAL STA (08:30)
[2017-09-30] MEDS ORDERED: Rate Change PCA 1 Each MISC PRN (09:00)
[2017-09-30] MEDS ORDERED: DiphenhydrAMINE 50mg/ml Inj IVP PRN (09:00)
[2017-09-30] MEDS ORDERED: PCA HYDROmorphone 1mg/ml 30 ML IV PRN (09:00)
[2017-09-30] MEDS ORDERED: Naloxone 0.4mg/ml Inj IVP PRN (09:00)
[2017-09-30] MEDS: D5 1/2NS w/KCl 40meq 1000ml 1,000 ML IV SCH (11:44)
[2017-09-30 12:00] VITALS: BP 131/65
[2017-09-30 16:00] VITALS: BP 129/68
[2017-09-30] MEDS ORDERED: Warfarin Sodium 4mg PO ONE (17:00)
[2017-09-30] MEDS: Warfarin Sodium 7.5mg ORAL SCH (17:56)
[2017-09-30 20:00] VITALS: BP 118/62
[2017-09-30] MEDS: Dyna-Hex 2% Top Sol 2oz TOPIC SCH (20:56)
[2017-09-30] MEDS: Fat Emulsion Iv 20% 240 ML in Tpn 1,680 ML IV SCH (21:05)
[2017-09-30] MEDS: LORazepam 1mg tab SL PRN (22:15)
[2017-10-01] VITALS: BP 114/58
[2017-10-01] MEDS: NovoLOG Insulin Flexpen SUBQ SCH ×6 (00:04→23:54)
[2017-10-01 04:00] VITALS: BP 115/63
[2017-10-01 04:09] LABS: BASOPHILS % (AUTO) 1.2 % (0.0-2.0); EOSINOPHILS % (AUTO) 7.8 % (0.0-3.0); HEMATOCRIT 34.2 % (42.0-52.0); HEMOGLOBIN 11.8 G/DL (14.2-18.0); LYMPHOCYTES % (AUTO) 21.6 % (20.0-45.0); MEAN CORPUSCULAR VOLUME 94 FL (80-99); MONOCYTES % (AUTO) 13.1 % (1.0-10.0); NEUTROPHILS % (AUTO) 56.4 % (45.0-75.0); PLATELET COUNT 359 K/UL (150-450); RED BLOOD COUNT 3.64 M/UL (4.70-6.10); RED CELL DISTRIBUTION WIDTH 11.7 % (11.6-14.8); WHITE BLOOD COUNT 9.9 K/UL (4.8-10.8)
[2017-10-01 04:23] LABS: ANION GAP 3 mmol/L (5-15); BLOOD UREA NITROGEN 16 mg/dL (7-18); CALCIUM 8.6 MG/DL (8.5-10.1); CARBON DIOXIDE 31 MMOL/L (21-32); CHLORIDE 101 MMOL/L (98-107); POTASSIUM 3.7 MMOL/L (3.5-5.1); SODIUM 135 MMOL/L (136-145)
[2017-10-01 04:24] LABS: INR 1.3 (0.9-1.1)
[2017-10-01] MEDS: PCA shift volume MISC SCH (07:21)
[2017-10-01 08:00] VITALS: BP 128/72
[2017-10-01] MEDS: Nystatin Susp 500,000 units/5ml ORAL SCH (08:38)
[2017-10-01] MEDS: Terazosin 1mg cap ORAL SCH ×2 (08:39→17:42)
[2017-10-01] MEDS: Heparin 5000 units/ml inj SUBQ SCH ×2 (08:46→20:37)
--- NOTE | 2017-10-01 10:07 | General Progress Note ---
Progress Note Progress Note AVSS Had some cramping now resolved Abdomen soft, non-distended, healing nicely Urine 2550 Kock pouch ileo 245 WBC 9900 Hgb 11.8 INR 1.3 BMP - wnl Imp: Resolving ileus Plan: Clear liquid diet D/C QUILL WORKER and IV fluids and Levaquin Continue TPN Continue SQ heparin until INR therapeutic Maintain continuous drainage of Kock Pouch continent ileostomy BOOGIE ZHONG Oct 01, 2017 10:07
[2017-10-01 12:00] VITALS: BP 120/67
[2017-10-01] MEDS: Norco 5mg/325mg tab ORAL PRN ×3 (14:08→22:56)
[2017-10-01 16:00] VITALS: BP 114/64
[2017-10-01] MEDS: Warfarin Sodium 7.5mg ORAL SCH (17:04)
[2017-10-01 20:00] VITALS: BP 99/59
[2017-10-01] MEDS: Fat Emulsion Iv 20% 240 ML in Tpn 1,680 ML IV SCH (20:36)
[2017-10-01] MEDS: Dyna-Hex 2% Top Sol 2oz TOPIC SCH (20:38)
[2017-10-02] VITALS: BP 102/66
[2017-10-02 04:00] VITALS: BP 110/60
[2017-10-02] MEDS: Norco 5mg/325mg tab ORAL PRN ×3 (05:37→20:32)
[2017-10-02] MEDS: NovoLOG Insulin Flexpen SUBQ SCH ×3 (05:48→17:27)
[2017-10-02 08:04] VITALS: BP 110/73
[2017-10-02] MEDS: Terazosin 1mg cap ORAL SCH ×2 (08:42→17:30)
[2017-10-02] MEDS: Heparin 5000 units/ml inj SUBQ SCH ×2 (08:50→20:41)
[2017-10-02 09:01] LABS: INR 1.3 (0.9-1.1)
--- NOTE | 2017-10-02 09:17 | General Progress Note ---
Progress Note Progress Note AVSS Tolerated clear liquid diet. Abdomen soft, healing nicely Urine 2550 Kock pouch ileo 770 INR still 1.3 Imp. Improving Plan: continue clear liquids today and TPN f/u labs in AM advance to [facility] low residue diet in AM maintain continuous drainage of Kock Pouch continent ileostomy BOOGIE ZHONG Oct 02, 2017 09:17
[2017-10-02] MEDS ORDERED: LORazepam 1mg tab SL PRN (09:30)
[2017-10-02 11:44] VITALS: BP 121/76
[2017-10-02 15:57] VITALS: BP 114/64
[2017-10-02] MEDS: Warfarin Sodium 7.5mg ORAL SCH (17:00)
[2017-10-02 20:13] VITALS: BP 111/71
[2017-10-02] MEDS: Fat Emulsion Iv 20% 240 ML in Tpn 1,680 ML IV SCH (20:30)
[2017-10-02] MEDS: Dyna-Hex 2% Top Sol 2oz TOPIC SCH (20:42)
[2017-10-02] MEDS: LORazepam 1mg tab SL PRN (21:41)
[2017-10-03] MEDS: NovoLOG Insulin Flexpen SUBQ SCH ×3 (00:30→12:31)
[2017-10-03 00:35] VITALS: BP 115/61
[2017-10-03 04:00] VITALS: BP 127/65
[2017-10-03] MEDS: Norco 5mg/325mg tab ORAL PRN ×4 (04:28→21:32)
[2017-10-03 05:49] LABS: BASOPHILS % (AUTO) 1.8 % (0.0-2.0); EOSINOPHILS % (AUTO) 7.2 % (0.0-3.0); HEMATOCRIT 35.9 % (42.0-52.0); LYMPHOCYTES % (AUTO) 17.9 % (20.0-45.0); MEAN CORPUSCULAR VOLUME 94 FL (80-99); NEUTROPHILS % (AUTO) 67.2 % (45.0-75.0); PLATELET COUNT 379 K/UL (150-450); RED BLOOD COUNT 3.82 M/UL (4.70-6.10); RED CELL DISTRIBUTION WIDTH 11.8 % (11.6-14.8); WHITE BLOOD COUNT 10.7 K/UL (4.8-10.8)
[2017-10-03 06:07] LABS: ALANINE AMINOTRANSFERASE 13 U/L (12-78); ALBUMIN 2.5 G/DL (3.4-5.0); ALBUMIN/GLOBULIN RATIO 0.7 (1.0-2.7); ALKALINE PHOSPHATASE 71 U/L (46-116); ANION GAP 6 mmol/L (5-15); ASPARTATE AMINO TRANSFERASE 15 U/L (15-37); BILIRUBIN,TOTAL 0.3 MG/DL (0.2-1.0); BLOOD UREA NITROGEN 21 mg/dL (7-18); CARBON DIOXIDE 29 MMOL/L (21-32); CHLORIDE 101 MMOL/L (98-107); PHOSPHORUS 4.3 MG/DL (2.5-4.9); POTASSIUM 4.2 MMOL/L (3.5-5.1); SODIUM 136 MMOL/L (136-145)
[2017-10-03 06:16] LABS: INR 1.4 (0.9-1.1)
[2017-10-03 08:00] VITALS: BP 98/60
--- NOTE | 2017-10-03 08:28 | General Progress Note ---
Progress Note Progress Note AVSS Tolerated clear liquid diet well 1700cc po intake Abdomen soft, healing nicely Urine 3025 Kock pouch ileo 390 WBC 10,700 Hgb 13 Albumin up 2.5 INR 1.4 (rising) Imp. Improving Plan: [facility] low residue diet D/C TPN after current supply finished Maintain continuous drainage of Kock Pouch continue SQ heparin until INR 2 or higher BOOGIE ZHONG Oct 03, 2017 08:28
[2017-10-03] MEDS ORDERED: Ascorbic Acid 500mg tab ORAL PRN (08:30)
[2017-10-03] MEDS: Terazosin 1mg cap ORAL SCH (08:34)
[2017-10-03] MEDS: Heparin 5000 units/ml inj SUBQ SCH ×2 (08:36→20:43)
[2017-10-03 12:00] VITALS: BP 102/52
[2017-10-03 16:00] VITALS: BP 110/62
[2017-10-03] MEDS: Warfarin Sodium 7.5mg ORAL SCH (17:17)
[2017-10-03] MEDS: Terazosin 2mg cap ORAL SCH (20:34)
[2017-10-03] MEDS: Dyna-Hex 2% Top Sol 2oz TOPIC SCH (20:34)
[2017-10-03 20:35] VITALS: BP 110/64
[2017-10-03] MEDS: LORazepam 1mg tab SL PRN (23:24)
[2017-10-04 00:43] VITALS: BP 110/70
[2017-10-04 04:00] VITALS: BP 112/65
[2017-10-04] MEDS: Norco 5mg/325mg tab ORAL PRN ×4 (04:22→21:22)
[2017-10-04 04:52] LABS: INR 1.3 (0.9-1.1)
[2017-10-04 08:00] VITALS: BP 101/57
[2017-10-04] MEDS: Terazosin 2mg cap ORAL SCH ×2 (09:10→21:00)
[2017-10-04] MEDS: Heparin 5000 units/ml inj SUBQ SCH ×2 (09:11→21:02)
--- NOTE | 2017-10-04 10:33 | General Progress Note ---
Progress Note Progress Note AVSS Tolerating [facility] low residue diet. Abdomen soft. Emma removed and steristrips applied. Kock pouch catheter removed - reinserts readily INR 1.3 (discussed with Pharmacist - did not receive vitamin K while on TPN) Imp. Improved Plan: RN supervised q3h Kock Pouch self-intubations am to hs and prn Remove PIC Continue SQ heparin and po Coumadin INR in AM - if still not therapeutic patient will use Lovenox he has after discharge in AM BOOGIE ZHONG Oct 04, 2017 10:33
[2017-10-04 12:00] VITALS: BP 117/63
[2017-10-04 16:00] VITALS: BP 107/63
[2017-10-04] MEDS ORDERED: Warfarin Sodium 7.5mg ORAL SCH (17:00)
[2017-10-04 20:31] VITALS: BP 116/59
[2017-10-04] MEDS: Dyna-Hex 2% Top Sol 2oz TOPIC SCH (20:48)
[2017-10-04] MEDS: LORazepam 1mg tab SL PRN (22:24)
[2017-10-05 00:09] VITALS: BP 107/55
[2017-10-05 04:52] VITALS: BP 114/62
[2017-10-05] MEDS: Norco 5mg/325mg tab ORAL PRN ×2 (05:38→09:32)
[2017-10-05 05:48] LABS: INR 1.3 (0.9-1.1)
[2017-10-05 08:00] VITALS: BP 117/71
[2017-10-05] MEDS: Terazosin 2mg cap ORAL SCH (08:34)
[2017-10-05] MEDS: Heparin 5000 units/ml inj SUBQ SCH (08:40)
[2017-10-05 09:02] VITALS: BP 117/71
--- NOTE | 2017-10-05 09:25 | General Progress Note ---
Progress Note Progress Note AVSS Doing well with self-intubation of Kock Pouch. Eating well. Abdomen soft , well healed INR still 1.3 Imp. doing well Plan: discharge to resume q12h Lovenox tonight and get INR Saturday AM 10/07 from PMD office. To continue [facility] low residue diet, intubate q3-4h, and f/u with me 10/10 and call prn Full instructions/limitations/supplies provided/discussed BOOGIE ZHONG Oct 05, 2017 09:25
[2017-10-05] MEDS ORDERED: NORCO 5-325 TA1 EACH ORAL ×2 (09:53→09:54)
[2017-10-05] MEDS ORDERED: Tubing IV Secondary IV ONE (09:59)
[2017-10-05] MEDS ORDERED: NS Irrig 1000ml ONE (09:59)
--- NOTE | 2017-10-08 09:45 | Discharge Summary ---
Discharge Summary Hospital Course Date of Admission Sep 24, 2017 at 08:40 Date of Discharge Oct 05, 2017 at 10:00 Admitting Diagnosis Enterocutaneous fistula likely involving Kock Pouch continent ileostomy. Reason for Hospitalization: Kouch endoscopy and subsequent surgery HPI Josue Hanks is a 77 year old male who was admitted on Sep 24, 2017 at 08:40 for Kock Pouch Fistula to undergo Kock pouch endoscopy and subsequent surgery Procedures s/p 09/24 - Kock Pouch endoscopy by dr Reddy s/p 09/25 - laparotomy with small-bowel resection x2 and revision of Kock pouch stoma in depth.- by dr Reddy Hospital Course s/p Kock pouch endoscopy , which revealed angulation of access segment, normal pouch and valve. Fistula in mid-portion of midline incision with scant drainage during endoscopy - hypertrophic granulations at site Plan: Repair of Kock pouch enterocutaneous fistula in AM, or resection of pouch with Farrah ileostomy patient subsequently undergone on 09/25 laparotomy with small-bowel resection x2 and revision of Kock pouch stoma in depth. on 09/26- T 102 overnight , normalized in am Pain management with Dilaudid RATE QUOTING OPERATOR. incentive spirometer at the bedside, using with good effort output from english and Kock pouch ileo closely monitored keep NPO, start TPN, had PICC line placed on admission IV abx ( clinical peritonitis from the intestine being open for prolonged time during surgery) OOB and ambulate with assistance on 09/27- Continue NPO status and TPN with IV fluids 25cc/hr Nystatin oral susp. S&S QID for early oral thrush continue English - pelvic dissection Started Coumadin and continue SQ Heparin until INR therapeutic ( history of PE) on 09/28 - slowly resolving peritonitis from open bowel during surgery Continue NPO, TPN, continue English, pain management with RATE QUOTING OPERATOR, continue IV antibiotics, continue Coumadin , daily INR, keep INR in therapeutic range 2-3 Increase KCL in IV fluids ( K-3.4) on 09/29 - continue NPO and TPN; continue IV antibiotics d/c urinary English catheter dietary consult re TPN formulation in view of decreasing albumin continue Coumadin with INR daily to keep INR in therapeutic range 2-3 On 09/30: continue NPO, TPN IV abx: d/c Flagyl and continue Levaquin diflucan 150mg po x 1 ( for oral thrush) coumadin with daily INR monitoring On 10/01 -started on clear liquid diet dc RATE QUOTING OPERATOR dc IVF dc Levaquin Continue TPN Continue SQ heparin with Couamdin until INR therapeutic Continuous drainage of Kock Pouch continent ileostomy on 10/02 - continue clear liquids and TPN advance to [facility] low residue diet in AM continuous drainage of Kock Pouch continent ileostomy on 10/03- [facility] low residue diet TPN dc continuous drainage of Kock Pouch SQ heparin with Coumadin until INR in therapeutic range 2-3 on 10/04 RN supervised q3h Kock Pouch self-intubations am to hs and prn PICC dc Continue SQ heparin and po Coumadin, INR still sub therapeutic check INR in AM - if still not therapeutic patient will use Lovenox after discharge in AM on 10/05 Doing well with self-intubation of Kock Pouch. tolerated diet ambulated pain controlled Abdomen soft, well healed INR still subtherapeutic- 1.3 Cleared for discharge: 1. to resume q12h Lovenox tonight and get INR 10/07 from PMD office. 2. continue [facility] low residue diet, intubate q3-4h, and f/u with surgeon 10/10 and call prn 3. Full instructions/limitations/supplies provided/discussed FINAL DIAGNOSIS 1. 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 2. History of ulcerative colitis. 3. History of pulmonary emboli in 2011 of unknown source, on warfarin. 4. Benign prostatic hypertrophy. 5. Status post multiple abdominal operations. 5.1. Proctocolectomy and Farrah ileostomy in 1973. 5.2. Kock pouch in 1975. 5.3. Revisions of Kock pouch in 1975 and 1977. 5.4. Resection of Kock pouch with creation of another Kock pouch with a mesh collar in 1977. 5.5. Laparotomy with revision of Kock pouch valve stenosis and revision of stoma 2012. 5.6. Laparotomy with creation of a new valve and stoma with preservation of the Kock pouch and relocation of the stoma to the left lower quadrant April 2016 6. s/p 09/24 Kock Pouch endoscopy 7. s/p 09/25C Resection of enterocutaneous fistula of small bowel x 2; revision of Kock Pouch stoma in depth 8. Ileus- resolved 9. Clinical peritonitis - resolved 10.Oral thrush 11. Malnutrition Discharge Medications Continued Medications: Enoxaparin* (Lovenox*) 80 Mg/0.8 Ml Inj 80 MG SUBQ EVERY 12 HOURS, #60 EA 0 Refills Finasteride* (Proscar*) 5 Mg Tablet 5 MG ORAL DAILY, #30 TAB 0 Refills Hydrocodone Bit/Acetaminophen 5-325* ([place] 5-325*) 1 Each Tablet 1 TAB ORAL DAILY PRN for For Pain, TAB 0 Refills Hydrocodone Bit/Acetaminophen 5-325* ([place] 5-325*) 1 Each Tablet 1 TAB ORAL BID PRN for For Pain, TAB 0 Refills Levofloxacin (Levofloxacin*) 500 Mg Tablet 500 MG ORAL DAILY, TAB Terazosin Hcl* (Hytrin*) 1 Mg Capsule 2 MG ORAL BID, #7 CAP 0 Refills Discharge Condition Upon Discharge: stable Discharge Disposition Patient was discharged to Home (01) Discharge Diagnoses: Discharge Instructions Discharge Instructions Special Instructions I have been assigned to complete a D/C Summary on this account. I was not involved in the patient management Idania Barlow NP ([place]) Oct 08, 2017 09:45
== END 2017-10-05 10:00 | disposition home health service (06) | DRG 329 ==
LOC: 3E 08:40
PROC: 0DB80ZZ Excision of Small Intestine, Open Approach (ICD-10-PCS; principal; 2017-09-24 11:56)
PROC: 02HV33Z Insertion of Infusion Device into Superior Vena Cava, Percutaneous Approach (ICD-10-PCS; principal; 2017-09-24 11:56)
PROC: B548ZZA Ultrasonography of Superior Vena Cava, Guidance (ICD-10-PCS; principal; 2017-09-24 11:56)
PROC: 0DQB0ZZ Repair Ileum, Open Approach (ICD-10-PCS; principal; 2017-09-24 11:56)
PROC: 0DJD8ZZ Inspection of Lower Intestinal Tract, Via Natural or Artificial Opening Endoscopic (ICD-10-PCS; principal; 2017-09-24 11:56)
PROC: 3E0436Z Introduction of Nutritional Substance into Central Vein, Percutaneous Approach (ICD-10-PCS; 2017-09-26)
DX: K91.858 Other complications of intestinal pouch (principal); K65.8 Other peritonitis; E46 Unspecified protein-calorie malnutrition; K63.2 Fistula of intestine; B37.0 Candidal stomatitis; K56.7 Ileus, unspecified; E88.09 Other disorders of plasma-protein metabolism, not elsewhere classified; R50.81 Fever presenting with conditions classified elsewhere; K66.0 Peritoneal adhesions (postprocedural) (postinfection); N40.0 Benign prostatic hyperplasia without lower urinary tract symptoms; Y83.8 Other surgical procedures as the cause of abnormal reaction of the patient, or of later complication, without mention of misadventure at the time of the procedure; Z68.26 Body mass index [BMI] 26.0-26.9, adult; Z86.711 Personal history of pulmonary embolism; Z87.898 Personal history of other specified conditions; Z79.01 Long term (current) use of anticoagulants; Z88.0 Allergy status to penicillin; Z93.2 Ileostomy status; Z90.49 Acquired absence of other specified parts of digestive tract; Z98.890 Other specified postprocedural states
CPT/HCPCS: 36415; 36569; 71045; 76937; 80048; 80053; 81001; 82962; 83735; 84100; 85007; 85025; 85610; 85730; 86850; 86900; 86901; 93005; 94003; 94150; J1815; J2250; J2405